=== PATIENT | male | born 1970 | race Caucasian/White ===

== ENCOUNTER → 2022-10-20 13:07 | Outpatient (CLI) | payer OTHER, SELFPAY ==
--- NOTE | ~2022-10-20 | XR_ITS ---
Clinical Indication: Leukocytosis PA and lateral views of the chest: Comparison: None Findings: The lungs are clear, without evidence of focal consolidation or pleural effusion. Cardiome diastinal silhouette is within normal limits. Bones and soft tissues are unremarkable. Impression: Normal chest. Reviewed, dictated and finalized at location . Impression: Normal chest.
== END ==
PROVIDERS: PCP Family Medicine; Visit Provider Nurse Practitioner Family
DX: D72.829 Elevated white blood cell count, unspecified (principal); Z01.818 Encounter for other preprocedural examination
CPT/HCPCS: 71046

== ENCOUNTER 2023-01-17 08:45 | Outpatient (CLI) | payer OTHER, SELFPAY ==
--- NOTE | 2023-01-18 18:13 | WPDHOMESLEEP ---
Sleep Study - Home Unattended Date of Study: 01/17/23 Ordering Provider: Tabitha Pham DO Interpreting Provider: Tabitha Pham DO Home Sleep Study Type: Watch PAT Height: 1.73 m Weight: 97.522 kg Body Mass Index: 32.6 Neck Circumference (inches): 17.5 [place]: 6 Reason for Sleep Study Previously diagnosed ADEOLA but couldn't tolerate CPAP. Worsening nocturnal gasping/choking Sleep History The patient is a 52-year-old male with GERD and previously diagnosed ADEOLA that had a sleep study ordered to requalify for PAP therapy. The patient frequently awakens from sleep short of breath. He frequently awakens at night with heartburn, belching or cough. He frequently snores and it is frequently loud enough that others complain. He frequently has trouble sleeping when he has a cold. He frequently wakes up gasping for air throughout the night. He frequently has breathing problems at night observed by himself or others. He denies sweating excessively at night. He occasionally falls asleep during the day but never while driving. He denies sleep paralysis, cataplexy and hypnagogic / hypnopompic hallucinations. He denies having trouble at school or work due to sleepiness. He denies feeling afraid of going to sleep. He denies having nightmares. He occasionally remembers his dreams. He occasionally has thoughts racing through his mind. He denies feeling sad or depressed. He rarely has anxiety. He rarely has muscular tension. He occasionally notices parts of his body jerk. He denies kicking during the night. He denies having crawling and aching feelings his legs and denies leg pain during night. He rarely grinds his teeth during sleep and never awakens with morning jaw pain. He denies being bothered by pain during the day and denies being awakened by pain during the night. He denies waking up feeling stiff in the morning. He denies waking up with sore or achy muscles. He denies waking up with pain in the neck, spine or other joints. He goes to bed at 10:00 p.m. on both weekdays and weekends. It takes him a few minutes to fall asleep. He wakes up twice throughout the night to urinate and is able to fall back asleep within a few minutes. He wakes up at 5:00 a.m. on weekdays and at 7:00 a.m. on the weekends. He typically gets 5-6 hours of sleep per night. He will stay in bed for 5-10 minutes after waking up in the morning. He currently lives with his son. He denies consuming any caffeinated beverages within 2 hours of bedtime. He denies engaging in physical exercise before bedtime. He denies reading and watching television before falling asleep. He will occasionally take naps in the afternoon or the evening and they are refreshing. He consumes 2 caffeinated beverages per day. He consumes 4-6 alcoholic beverages per month. He denies tobacco and recreational drug use. [facility] Past Medical History Medical History Elevated BP without diagnosis of hypertension Elevated serum creatinine Elevated WBC count Encounter to establish care Heartburn Left knee pain Pre-op evaluation Snoring Surgical History Surgical History History of surgery on left wrist (~2021) Family History Family History Father Family history of diabetes mellitus in first degree relative Family history of malignant melanoma Mother Cancer Sibling Diabetes mellitus Social History Social History Smoking status: Never smoker Alcohol intake: current Drinks per week: 4 Alcohol use details: weekends occ. Substance use: never Substance use type: does not use Lack of Transportation: No Lack of Food: Never True Current Housing: I Have Housing Concerned About Future Housing: No Difficulty Paying Gas/Electric Bill
[2023-01-18 18:21] VITALS: BMI 32.6
== END 2023-01-18 08:00 | disposition home or self-care (01) ==
LOC: ANHCSM 08:46
PROVIDERS: PCP Family Medicine; Visit Provider Family Medicine
DX: G47.33 Obstructive sleep apnea (adult) (pediatric) (principal)
CPT/HCPCS: 95800

== ENCOUNTER 2023-01-26 08:14 | Outpatient (CLI) | payer OTHER, SELFPAY ==
--- NOTE | 2023-01-31 16:49 | WPDSLEEPSTUD ---
Sleep Study Date of Study: 01/26/23 Ordering Provider: Tabitha Pham DO Interpreting Physician: Tabitha Pham DO Sleep Study Type: BiPAP Titration Height: 1.73 m Weight: 99.337 kg Body Mass Index: 33.3 Neck Circumference (inches): 17 [place]: 6 Reason for Sleep Study WatchPAT home sleep test on 01/17/2023 showed AHI of 39.8 with desaturation down to 82%. Sleep History The patient is a 52-year-old male with GERD and previously diagnosed ADEOLA that had a sleep study ordered to requalify for PAP therapy.? The patient frequently awakens from sleep short of breath.? He frequently awakens at night with heartburn, belching or cough.? He frequently snores and it is frequently loud enough that others complain.? He frequently has trouble sleeping when he has a cold.? He frequently wakes up gasping for air throughout the night.? He frequently has breathing problems at night observed by himself or others.? He denies sweating excessively at night.? He occasionally falls asleep during the day but never while driving.? He denies sleep paralysis, cataplexy and hypnagogic / hypnopompic hallucinations.? He denies having trouble at school or work due to sleepiness.? He denies feeling afraid of going to sleep.? He denies having nightmares.? He occasionally remembers his dreams.? He occasionally has thoughts racing through his mind.? He denies feeling sad or depressed.? He rarely has anxiety.? He rarely has muscular tension.? He occasionally notices parts of his body jerk.? He denies kicking during the night.? He denies having crawling and aching feelings his legs and denies leg pain during night.? He rarely grinds his teeth during sleep and never awakens with morning jaw pain.? He denies being bothered by pain during the day and denies being awakened by pain during the night.? He denies waking up feeling stiff in the morning.? He denies waking up with sore or achy muscles.? He denies waking up with pain in the neck, spine or other joints.? He goes to bed at 10:00 p.m. on both weekdays and weekends.? It takes him a few minutes to fall asleep.? He wakes up twice throughout the night to urinate and is able to fall back asleep within a few minutes.? He wakes up at 5:00 a.m. on weekdays and at 7:00 a.m. on the weekends.? He typically gets 5-6 hours of sleep per night.? He will stay in bed for 5-10 minutes after waking up in the morning.? He currently lives with his son.? He denies consuming any caffeinated beverages within 2 hours of bedtime.? He denies engaging in physical exercise before bedtime.? He denies reading and watching television before falling asleep.? He will occasionally take naps in the afternoon or the evening and they are refreshing.? He consumes 2 caffeinated beverages per day.? He consumes 4-6 alcoholic beverages per month.? He denies tobacco and recreational drug use. COUNTS INCLUDE 234 BEDS AT THE [facility] Past Medical History Medical History Elevated BP without diagnosis of hypertension Elevated serum creatinine Elevated WBC count Encounter to establish care Heartburn Left knee pain Pre-op evaluation Snoring Surgical History Surgical History History of surgery on left wrist (~2021) Family History Family History Father Family history of diabetes mellitus in first degree relative Family history of malignant melanoma Mother Cancer Sibling Diabetes mellitus Social History Social History Smoking status: Never smoker Alcohol intake: current Drinks per week: 4 Alcohol use details: weekends occ. Substance use: never Substance use type: does not use Lack of Transportation: No Lack of Food: Never True Current Housing: I Have Housing Concerned About Future Housing: No Difficulty Paying Gas/Electric Bills: No Difficulty
[2023-01-31 16:55] VITALS: BMI 33.3
== END 2023-01-27 06:30 | disposition home or self-care (01) ==
LOC: ANHCSM 08:50
PROVIDERS: PCP Family Medicine; Visit Provider Family Medicine
DX: G47.33 Obstructive sleep apnea (adult) (pediatric) (principal); K21.9 Gastro-esophageal reflux disease without esophagitis
CPT/HCPCS: 95811

== ENCOUNTER 2023-04-18 08:48 | Emergency (ER) | payer OTHER, SELFPAY ==
[2023-04-18 09:06] VITALS: BP 148/77; PULSE 75; RESP 16; TEMP 36.3; O2SAT 97
--- NOTE | 2023-04-18 09:42 | ED.SKABFB ---
HPI - Skin/Abscess/Foreign Bdy General Chief complaint: Skin/Abscess/Foreign Body Stated complaint: Right Leg Cellultits Time Seen by Provider: 04/18/23 09:42 Source: patient, RN notes reviewed and old records reviewed Mode of arrival: ambulatory Limitations: no limitations History of Present Illness HPI narrative: 52 year old male presents to [facility] care with complaints of red irritating rash to the lateral aspect of his right ankle for the past 5 months which he thought was poison claudine. He states that it itches and he has scratched and it waxes and wanes in intensity. He reports that starting Tuesday he has had increased redness and he noted swelling to ankle and lateral foot and is concerned of infection. He has used some steroid cream to area and has been washing area with liquid dial soap. Patient has 8cm X 5cm area to lateral right ankle region which is red with dried lesions in wound, no fluctuance of tissue, he reports swelling has decreased. MD complaint: rash and other (swelling redness) Onset (ago): month(s) (increased for past 4 days) Location: RLE (lateral ankle ) Severity scale (1-10): 6 Quality: aching and pruritic Pain Consistency: constant Treatments prior to arrival: other (steroid cream and washed with liquid dial soap) Related Data Home Medications Medication Instructions Recorded Confirmed diclofenac sodium 75 mg 75 mg PO BID 12/29/22 04/18/23 tablet,delayed release Allergies Allergy/AdvReac Type Severity Reaction Status Date / Time No Known Allergies Allergy Verified 04/18/23 09:11 Review of Systems Review of Systems: CONSTITUTIONAL: Denies fever, chills, or sweats. CARDIOVASCULAR: Denies chest pain, palpitations, or edema. RESPIRATORY: Denies cough or dyspnea. GASTROINTESTINAL: Denies abdominal pain, nausea, vomiting SKIN: Reports redness and swelling with red tissue with dried lesions to right lateral anlkle. MUSCULOSKELETAL: Denies myalgia. NEUROLOGIC: Denies headache, numbness All systems reviewed & are unremarkable except as noted in HPI and below PMFSH Past Medical History Medical History (Updated 04/19/23 @ 08:44 by Reina Chavira NP) Elevated BP without diagnosis of hypertension Elevated serum creatinine Elevated WBC count Encounter to establish care Heartburn Left knee pain ADEOLA on CPAP Pre-op evaluation Snoring Surgical History Surgical History (Updated 04/19/23 @ 08:45 by Reina Chavira NP) History of nasal septoplasty History of surgery on left wrist (~2021) History of total left knee replacement Family History Family History Father Family history of diabetes mellitus in first degree relative Family history of malignant melanoma Mother Cancer Sibling Diabetes mellitus Social History Social History Smoking status: Never smoker Alcohol intake: current Drinks per week: 4 Alcohol use details: weekends occ. Substance use: never Substance use type: does not use Lack of Transportation: No Lack of Food: Never True Current Housing: I Have Housing Concerned About Future Housing: No Difficulty Paying Gas/Electric Bills: No Difficulty Paying for Meds: No Currently Unemployed: No Education: Bachelor's Degree Difficulty w/ Childcare or Family Care: No Comments At time of signature, agree with nursing past medical, surgical, social and family history. There is no relevant family history pertinent to the presenting complaint Exam Narrative: GENERAL: Well-appearing, well-nourished, and in no acute distress. HEAD: Normocephalic, atraumatic. EYES: PERRLA and EOMI. ENT: Nares clear, no rhinorrhea or epistaxis. Mucous membranes moist.TM's normal throat pink with no swelling NECK: Supple. no lymphadenopathy CHEST: Clear to auscultation. No respiratory distress.SAO2 97% on room air HEART: Regular rate and rhythm. No mu
== END 2023-04-18 10:00 | disposition home or self-care (01) ==
PROVIDERS: Emergency Provider Registered Nurse; PCP Nurse Practitioner Family
DX: L03.115 Cellulitis of right lower limb (principal); R12 Heartburn; G47.33 Obstructive sleep apnea (adult) (pediatric); Z96.652 Presence of left artificial knee joint
CPT/HCPCS: 99213; G0463